=== PATIENT | male | born 1935 | race Caucasian/White ===

== ENCOUNTER → 2019-05-29 14:53 | Outpatient (CLI) | payer MEDICARE, OTHER, SELFPAY ==
[2019-05-29 16:32] LABS: Alanine Aminotransferase 11 IU/L (21-72); Albumin 4.2 g/dL (3.5-5.0); Albumin Globulin Ratio 1.3 (1.0-2.8); Alkaline Phosphatase 73 U/L (38-126); Aspartate Aminotransferase 15 IU/L (17-59); BUN Creatinine Ratio 28.6 (6-22); Bilirubin Total 0.2 mg/dL (0.2-1.3); Blood Urea Nitrogen 20 mg/dL (9-20); Calcium 9.4 mg/dL (8.4-10.2); Carbon Dioxide 29 mmol/L (22-32); Chloride 105 mmol/L (98-107); Estimated Glomerular Filt Rate > 60.0 mL/min (>60); Globulin 3.3 g/dL (1.7-4.1); Glucose 99 mg/dL (80-110); HEMOLYSIS < 15 (0-50); Potassium 4.6 mmol/L (3.4-5.1); Sodium 142 mmol/L (137-145); Total Protein 7.5 g/dL (6.3-8.2)
[2019-05-29 17:00] LABS: TSH w/ Reflex to FT4 1.68 uIU/mL (0.47-4.68)
== END ==
PROVIDERS: PCP Student in an Organized Health Care Education/Training Program; Visit Provider Student in an Organized Health Care Education/Training Program
DX: I10 Essential (primary) hypertension (principal); N40.0 Benign prostatic hyperplasia without lower urinary tract symptoms; R53.82 Chronic fatigue, unspecified
CPT/HCPCS: 36415; 80053; 84443

== ENCOUNTER → 2019-07-13 08:48 | Outpatient (CLI) | payer MEDICARE, OTHER, SELFPAY ==
--- NOTE | 2019-07-13 08:52 | DI.ECHO.S_ITS ---
[facility] +---------+ : : [address] : : : : [id number] : : : : Phone: [phone] Echocardiogram Report + + :Name: NICOLA FOUNTAIN Study Date: 07/13/2019 Height: 67 in : :[facility] Weight: 155 lb : : Gender: Male BSA: 1.8 m2 : :: 1935 Age: 83 yrs BP: 180/86 mmHg: :Reason For Study: Syncope : : Performed By: Floresita Hodges : :Referring: KEREN LI : + + Interpretation Summary Borderline concentric left ventricular hypertrophy with ejection fraction 55- 60%. Grade I diastolic dysfunction. No significant valvular abnormality. Mildly enlarged ascending aorta. Procedure: A two-dimensional transthoracic echocardiogram with color flow and Doppler was performed. The study quality was technically adequate. There is no prior echocardiogram noted for this patient. The patient was in normal sinus rhythm during the exam. The patient had frequent PVCs during the exam. Left Ventricle: The left ventricle is normal in size. There is borderline concentric left ventricular hypertrophy. The ejection fraction is estimated to be 55-60%. There are no focal wall motion abnormalities. Diastolic parameters suggest a relaxation abnormality of the left ventricle, consistent with probable normal filling pressures. Right Ventricle: The right ventricle grossly appears normal in size with probable normal systolic function. Atria: The left atrial size is normal. Right atrial size is normal. The interatrial septum is intact with no evidence for an atrial septal defect. Mitral Valve: The mitral valve is grossly normal. There is trace mitral regurgitation. Aortic Valve: The aortic valve is trileaflet. The aortic valve opens well. No aortic regurgitation is present. Tricuspid Valve: The tricuspid valve is normal in structure and function. No tricuspid regurgitation. Pulmonic Valve: The pulmonic valve is normal in structure and function. There is trace pulmonic regurgitation. Great Vessels: The aortic root is normal size. The ascending aorta is mildly enlarged. The aortic arch is at the upper limits of normal in size. The IVC is of normal diameter and collapses greater than 50% with a sniff. This suggests a low right atrial pressure of 3 mm Hg. Pericardium/ Pleura There is no pericardial effusion. There is no pleural effusion. MMode/2D Measurements & Calculations LVIDd: 4.5 cm Ao root diam: 3.3 cm LVIDs: 3.1 cm Aortic Jxn: 3.1 cm FS: 30.6 % asc Aorta Diam: 3.8 cm EPSS: 1.5 cm Ao Arch Diam (Prox Trans): 3.2 cm IVSd: 1.1 cm LVPWd: 0.87 cm LV robins. diameter/BSA (cm/m^2): 2.5 LV sys. diameter/BSA (cm/m^2): 1.7 LA dimension: 3.0 cm RA long axis: 5.1 cm LA A2 area: 11.1 cm2 RA area: 12.3 cm2 LA A4 area: 11.4 cm2 RA vol: 25.3 ml LA length (vol): 4.9 cm RA : 14.0 ml/m2 LA vol: 21.7 ml IVC diam: 1.6 cm LA vol index: 12.0 ml/m2 RVDd major: 5.2 cm RVD1 (basal): 3.2 cm RVD2 (mid): 2.8 cm Doppler Measurements & Calculations Ao V2 max: 124.7 cm/sec MV E max ferny: 51.0 cm/sec Ao V2 mean: 90.3 cm/sec MV A max ferny: 85.2 cm/sec Ao max P.2 mmHg MV E/A: 0.60 Ao mean P.6 mmHg Med Peak E' Ferny: 6.8 cm/sec Ao V2 VTI: 25.5 cm E/E' med: 7.5 Lat Peak E' Ferny: 6.8 cm/sec E/E' lat: 7.5 E/e' average: 7.5 MV dec time: 0.40 sec MV P1/2t: 115.9 msec PA V2 max: 141.1 cm/sec MV P1/2t max ferny: 50.6 cm/sec PA V2 mean: 70.3 cm/sec MVA(P1/2t): 1.9 cm2 PA mean P.8 mmHg PA Accel Time: 0.10 sec Electronically signed by: Yoni Cuello on Reading Physician:07/13/2019 01:25 PM
== END ==
PROVIDERS: PCP Student in an Organized Health Care Education/Training Program; Visit Provider Student in an Organized Health Care Education/Training Program
DX: R55 Syncope and collapse (principal); I77.89 Other specified disorders of arteries and arterioles
CPT/HCPCS: 93306

== ENCOUNTER → 2021-06-07 10:30 | Outpatient (CLI) | payer MEDICARE, OTHER, SELFPAY ==
[2021-06-07 11:43] LABS: Add Manual Diff / Slide Review NO; Basophils Absolute Auto 0 /uL (0-100); Basophils Percent Auto 0.4 % (0-2); Eosinophils Absolute Auto 300 /uL (0-450); Eosinophils Percent Auto 3.4 % (2-4); Hematocrit 46.5 % (41-53); Hemoglobin 15.9 g/dL (13.5-17.5); Lymphocytes Absolute Auto 1900 /uL (1100-4500); Lymphocytes Percent Auto 23.9 % (25-40); Mean Corpuscular HGB Conc 34.3 % (30-36); Mean Corpuscular Volume 90.6 fL (80-100); Monocytes Absolute Auto 800 /uL (0-900); Monocytes Percent Auto 9.9 % (3-14); Neutrophils Absolute Auto 5000 /uL (1500-7000); Neutrophils Percent Auto 62.4 % (50-75); Platelet Count 263 X10^3/uL (150-400); Red Blood Cell Count 5.13 X10^6/uL (4.5-5.9); Red Cell Distribution Width 13.6 % (11.6-14.8)
[2021-06-07 12:22] LABS: Alanine Aminotransferase 12 IU/L (<50); Albumin 4.2 g/dL (3.5-5.0); Albumin Globulin Ratio 1.2 (1.0-2.8); Alkaline Phosphatase 70 U/L (38-126); Aspartate Aminotransferase 19 IU/L (17-59); BUN Creatinine Ratio 20.6 (6-22); Bilirubin Total 0.6 mg/dL (0.2-1.3); Blood Urea Nitrogen 14 mg/dL (9-20); Calcium 9.3 mg/dL (8.4-10.2); Carbon Dioxide 27 mmol/L (22-32); Chloride 107 mmol/L (98-107); Cholesterol 197 mg/dL (140-199); Estimated Glomerular Filt Rate > 60.0 mL/min (>60); Globulin 3.6 g/dL (1.7-4.1); Glucose 122 mg/dL (80-110); HDL Cholesterol 42 mg/dL (40-60); HEMOLYSIS < 15 (0-50); LDL Cholesterol Calculated 130 mg/dL (<100); Potassium 4.2 mmol/L (3.4-5.1); Sodium 142 mmol/L (137-145); Total Protein 7.8 g/dL (6.3-8.2); Triglycerides 125 mg/dL (35-150)
[2021-06-07 13:45] LABS: Thyroid Stimulating Hormone 1.75 uIU/mL (0.47-4.68)
== END ==
PROVIDERS: PCP Family Medicine; Referring Provider Family Medicine; Visit Provider Family Medicine
DX: R53.83 Other fatigue (principal); Z13.220 Encounter for screening for lipoid disorders; E78.00 Pure hypercholesterolemia, unspecified
CPT/HCPCS: 36415; 80053; 80061; 84443; 85025

== ENCOUNTER → 2021-07-05 10:52 | Outpatient (CLI) | payer MEDICARE, OTHER, SELFPAY ==
[2021-07-05 12:38] LABS: Add Manual Diff / Slide Review NO; Basophils Absolute Auto 0 /uL (0-100); Basophils Percent Auto 0.5 % (0-2); Eosinophils Absolute Auto 200 /uL (0-450); Hematocrit 46.3 % (41-53); Hemoglobin 15.6 g/dL (13.5-17.5); Lymphocytes Absolute Auto 1800 /uL (1100-4500); Lymphocytes Percent Auto 20.7 % (25-40); Mean Corpuscular HGB Conc 33.7 % (30-36); Mean Corpuscular Hemoglobin 30.5 PG (26-34); Mean Corpuscular Volume 90.5 fL (80-100); Monocytes Absolute Auto 700 /uL (0-900); Monocytes Percent Auto 8.2 % (3-14); Neutrophils Absolute Auto 6000 /uL (1500-7000); Neutrophils Percent Auto 68.6 % (50-75); Platelet Count 257 X10^3/uL (150-400); Red Blood Cell Count 5.12 X10^6/uL (4.5-5.9); Red Cell Distribution Width 13.4 % (11.6-14.8); White Blood Cell Count 8.8 X10^3/uL (4.5-11.0)
[2021-07-05 13:03] LABS: Alanine Aminotransferase 12 IU/L (<50); Albumin 3.9 g/dL (3.5-5.0); Albumin Globulin Ratio 1.1 (1.0-2.8); Alkaline Phosphatase 77 U/L (38-126); Aspartate Aminotransferase 16 IU/L (17-59); BUN Creatinine Ratio 21.3 (6-22); Bilirubin Total 0.6 mg/dL (0.2-1.3); Blood Urea Nitrogen 16 mg/dL (9-20); Calcium 9.7 mg/dL (8.4-10.2); Carbon Dioxide 28 mmol/L (22-32); Chloride 106 mmol/L (98-107); Cholesterol 208 mg/dL (140-199); Estimated Glomerular Filt Rate > 60.0 mL/min (>60); Globulin 3.4 g/dL (1.7-4.1); Glucose 121 mg/dL (80-110); HDL Cholesterol 47 mg/dL (40-60); HEMOLYSIS < 15 (0-50); LDL Cholesterol Calculated 132 mg/dL (<100); Potassium 4.6 mmol/L (3.4-5.1); Sodium 140 mmol/L (137-145); Total Protein 7.3 g/dL (6.3-8.2); Triglycerides 145 mg/dL (35-150)
[2021-07-05 13:27] LABS: Thyroid Stimulating Hormone 1.53 uIU/mL (0.47-4.68)
== END ==
PROVIDERS: PCP Family Medicine; Referring Provider Family Medicine; Visit Provider Family Medicine
DX: R53.83 Other fatigue (principal); Z13.220 Encounter for screening for lipoid disorders
CPT/HCPCS: 36415; 80053; 80061; 84443; 85025

== ENCOUNTER → 2022-05-23 10:30 | Outpatient (CLI) | payer MEDICARE, OTHER, SELFPAY ==
--- NOTE | 2022-05-23 10:32 | DI.RAD.S_ITS ---
PROCEDURE: XR LUMBAR SPINE 2-3V INDICATIONS: low back pain TECHNIQUE: 3 views of the lumbar spine were acquired. COMPARISON: None. FINDINGS: Bones: 5 [id number]-vyk-[id number] vertebrae are present. Mild levoscoliosis. Multilevel DDD and all vertebral body osteophytes. Lower lumbar spine facet joint hypertrophy. No vertebral body compression fractures. No suspicious bony lesions. Soft tissues: Overlying bowel gas pattern is normal. No suspicious soft tissue calcifications. IMPRESSION: Moderate DDD and degenerative change. No compression fracture identified. Dictated by: Dale Bustillo M.D. on 05/23/2022 at 13:12 Approved by: Dale Bustillo M.D. on 05/23/2022 at 13:20
[2022-05-23 12:20] LABS: Hematocrit 46.8 % (41-53); Hemoglobin 15.8 g/dL (13.5-17.5); Mean Corpuscular HGB Conc 33.8 % (30-36); Mean Corpuscular Hemoglobin 30.5 PG (26-34); Mean Corpuscular Volume 90.4 fL (80-100); Platelet Count 321 X10^3/uL (150-400); Red Blood Cell Count 5.18 X10^6/uL (4.5-5.9); Red Cell Distribution Width 13.5 % (11.6-14.8); White Blood Cell Count 8.1 X10^3/uL (4.5-11.0)
[2022-05-23 12:38] LABS: Erythrocyte Sedimentation Rate 4 MM/HR (0-15)
[2022-05-23 13:10] LABS: HEMOLYSIS < 15 (0-50)
[2022-05-23 13:18] LABS: Alanine Aminotransferase 11 IU/L (<50); Albumin 4.3 g/dL (3.5-5.0); Albumin Globulin Ratio 1.2 (1.0-2.8); Alkaline Phosphatase 76 U/L (38-126); Aspartate Aminotransferase 16 IU/L (17-59); BUN Creatinine Ratio 17.8 (6-22); Bilirubin Total 0.6 mg/dL (0.2-1.3); Blood Urea Nitrogen 13 mg/dL (9-20); Calcium 9.3 mg/dL (8.4-10.2); Carbon Dioxide 28 mmol/L (22-32); Chloride 105 mmol/L (98-107); Cholesterol 200 mg/dL (140-199); Estimated Glomerular Filt Rate > 60 mL/min (>60); Globulin 3.5 g/dL (1.7-4.1); Glucose 126 mg/dL (80-110); HDL Cholesterol 45 mg/dL (40-60); LDL Cholesterol Calculated 124 mg/dL (<100); Potassium 4.3 mmol/L (3.4-5.1); Sodium 141 mmol/L (137-145); Total Protein 7.8 g/dL (6.3-8.2); Triglycerides 155 mg/dL (35-150)
[2022-05-25 06:47] LABS: C-Reactive Protein Quant < 0.5 mg/dL (<1.0)
[2022-05-25 07:35] LABS: Prostate Specific Antigen 3.31 ng/mL (0.10-4.00)
[2022-05-25 07:54] LABS: Vitamin B12 246 pg/mL (239-931)
== END ==
PROVIDERS: PCP Internal Medicine; Referring Provider Internal Medicine; Visit Provider Internal Medicine
DX: M54.50 Low back pain, unspecified (principal); E78.2 Mixed hyperlipidemia; N40.1 Benign prostatic hyperplasia with lower urinary tract symptoms; G89.29 Other chronic pain; I10 Essential (primary) hypertension; R35.0 Frequency of micturition; R53.82 Chronic fatigue, unspecified; E53.8 Deficiency of other specified B group vitamins; M51.36 Other intervertebral disc degeneration, lumbar region
CPT/HCPCS: 36415; 72100; 80053; 80061; 82607; 84153; 84443; 85027; 85651; 86140

== ENCOUNTER → 2022-12-10 12:02 | Outpatient (CLI) | payer MEDICARE, OTHER, SELFPAY ==
[2022-12-10 16:09] LABS: Vitamin B12 787 pg/mL (239-931)
== END ==
PROVIDERS: PCP Internal Medicine; Referring Provider Internal Medicine; Visit Provider Internal Medicine
DX: E53.8 Deficiency of other specified B group vitamins (principal)
CPT/HCPCS: 36415; 82607

== ENCOUNTER → 2022-12-17 12:27 | Outpatient (CLI) | payer MEDICARE, OTHER, SELFPAY ==
[2022-12-17 13:56] LABS: Thyroid Stimulating Hormone 1.72 uIU/mL (0.47-4.68)
== END ==
PROVIDERS: PCP Internal Medicine; Referring Provider Physician Assistant Medical; Visit Provider Physician Assistant Medical
DX: R53.82 Chronic fatigue, unspecified (principal); E53.8 Deficiency of other specified B group vitamins
CPT/HCPCS: 36415; 84443

== ENCOUNTER → 2023-03-11 12:21 | Outpatient (CLI) | payer MEDICARE, OTHER, SELFPAY ==
[2023-03-11 13:03] LABS: Aspartate Aminotransferase 19 IU/L (17-59); BUN Creatinine Ratio 21.1 (6-22); Blood Urea Nitrogen 15 mg/dL (9-20); Calcium 9.4 mg/dL (8.4-10.2); Carbon Dioxide 30 mmol/L (22-32); Chloride 102 mmol/L (98-107); Cholesterol 139 mg/dL (140-199); Estimated Glomerular Filt Rate > 60 mL/min (>60); Glucose 110 mg/dL (80-110); HDL Cholesterol 46 mg/dL (40-60); HEMOLYSIS < 15 (0-50); LDL Cholesterol Calculated 66 mg/dL (<100); Potassium 4.2 mmol/L (3.4-5.1); Sodium 139 mmol/L (137-145); Triglycerides 137 mg/dL (35-150)
[2023-03-11 13:51] LABS: Vitamin B12 787 pg/mL (239-931)
== END ==
PROVIDERS: PCP Internal Medicine; Referring Provider Internal Medicine; Visit Provider Internal Medicine
DX: I10 Essential (primary) hypertension (principal); E53.8 Deficiency of other specified B group vitamins; E78.2 Mixed hyperlipidemia
CPT/HCPCS: 36415; 80048; 80061; 82607; 84450

== ENCOUNTER 2023-11-14 11:59 | Emergency (ER) | payer MEDICARE, OTHER, SELFPAY ==
[2023-11-14 12:06] VITALS: BP 165/96; PULSE 83; RESP 18; TEMP 36.9; O2SAT 96; BMI 21.9
--- NOTE | 2023-11-14 12:35 | ED.FALL ---
HPI - Fall <Belle Jauregui PA-C - Last Filed: 11/14/23 12:40> General Chief Complaint: Fall Stated Complaint: sent by [facility] fell on face swollen Time Seen by Provider: 11/14/23 12:21 Source: patient Mode of arrival: Ambulatory History of Present Illness HPI Narrative: Patient is an 88-year-old male who presents with redness and swelling of the right side of his face. reports he fell forward out of a low chair onto carpet about 3 days ago and did bump his cheek. It was slightly red yesterday but when he awoke this morning, he was having more discomfort, edema and redness. He denies fever or chills. He does not take any blood thinner medicines. No vision changes or pain with eye movement.. Related Data Home Medications Medication Instructions Recorded Confirmed cholecalciferol (vitamin D3) 50 50 mcg PO DAILY 05/23/22 09/10/23 mcg (2,000 unit) capsule cyanocobalamin (vitamin B-12) 1,000 mcg PO DAILY 12/10/22 09/10/23 1,000 mcg capsule aspirin 81 mg capsule 81 mg PO DAILY 03/11/23 09/10/23 Previous Rx's Medication Instructions Recorded rosuvastatin 10 mg tablet 10 mg PO DAILY #90 tabs 11/13/23 amoxicillin 875 mg-potassium 1 tab PO BID #20 tabs 11/14/23 clavulanate 125 mg tablet Allergies Allergy/AdvReac Type Severity Reaction Status Date / Time terazosin AdvReac Intermediate disorientat Verified 09/10/23 09:35 ion Review of Systems <Belle Jauregui PA-C - Last Filed: 11/14/23 12:40> Review of Systems ROS Unobtainable: All systems reviewed & are unremarkable except as noted in HPI and below Patient History <Belle Jauregui PA-C - Last Filed: 11/14/23 12:40> Medical History Allergic rhinitis B12 deficiency Do not resuscitate Chronic low back pain Mild cognitive impairment Mixed hyperlipidemia Gout Chronic back pain (1999) Depression Anxiety GERD (gastroesophageal reflux disease) Prostatitis Pneumonia Surgical History History of hand surgery History of cystoscopy (2002) History of thumb surgery (08/04/09) 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 Well-developed patient, in no distress. NEURO: AOx3. HEAD: Atraumatic. Normocephalic. EYES: Pupils equal round and reactive. Extraocular motions intact. No scleral icterus. No injection or drainage. ENT: Bilateral TMs pearly simeon. Patient is hard of hearing and forgot his hearing aids. Nose without bleeding or purulent drainage. Moderate edema and erythema of the right cheek, centered lateral to the nose. Tender to palpation lateral to the nose but not tender to the eye or the chin. Examination of the oropharynx shows significant erythema and induration of the upper gingiva around tooth #5 and #6- this area is tender to touch. Patient has multiple visible caries and halitosis. NECK: Trachea midline. Non tender RESPIRATORY: No increased work of breathing or distress SKIN: No rash or erythema of visible areas Initial Vital Signs Initial Vital Signs: Vital Signs Temperature 98.5 F 11/14/23 12:06 Pulse Rate 83 11/14/23 12:06 Respiratory Rate 18 11/14/23 12:06 Blood Pressure 165/96 H 11/14/23 12:06 Pulse Oximetry 96 11/14/23 12:06 Oxygen Delivery Method Room Air 11/14/23 12:06 <Carmela Suero DO - Last Filed: 11/15/23 07:46> Initial Vital Signs Initial Vital Signs: Vital Signs Temperature 98.5 F 11/14/23 12:06 Pulse Rate 83 11/14/23 12:06 Respiratory Rate 18 11/14/23 12:06 Blood Pressure 165/96 H 11/14/23 12:06 Pulse Oximetry 96 12/14/23 12:06 Oxygen Delivery Method Room Air 11/14/23 12:06 Course <Belle Jauregui PA-C - Last Filed: 11/14/23 12:40> Vital Signs Vital signs: Vital Signs - 8 hr 11/14/23 12:06 Temperature 98.5 F Pulse Rate 83 Respiratory Rate 18 Blood Pressure 165/96 H Pulse Oximetry 96 Oxygen Delivery Method Room Air <Carmela Suero DO - Last Filed: 11/15/23 07:46> Vital Signs Vital signs: Vital Signs - 8 hr 11/14/23 12:06 Temperature 98.5 F Pulse Rate 83 Respiratory Rate 18 Blood Pressure 165/96 H Pulse Oximetry 96 Oxygen Delivery Method Room Air MDM - Fall <Belle Jauregui PA-C - Last Filed: 11/14/23 12:40> MDM Narrative Medical decision making narrative: Multiple etiologies for patient's symptoms considered including, but not limited to: Dental abscess, facial fracture, cellulitis, periorbital or preseptal cellulitis Physical exam most consistent with dental abscess with evidence of multiples caries and halitosis, as well as erythema and tenderness of the right upper gum. Discussed findings with the patient and his . We will treat with 10 days of Augmentin. Strongly encouraged to call around and make an appointment for him to follow up with a dentist in approximately 2 weeks after the infection has been treated. He will likely need removal of the tooth and is in need of other dental care as well. Strict return precautions given if patient worsens or is not improving. Patient's symptoms improved over duration of stay with above-stated therapies. Findings and discharge diagnosis discussed with patient/family followed by verbalization of understanding Return precautions discussed with patient/family whom verbalize understanding of diagnosis and plan Discharge Plan Departure Patient Disposition: Home Clinical Impression: Dental infection Instructions: Tooth Abscess Activity Restrictions/Additional Instructions: *You have been diagnosed with dental abscess. I have prescribed an antibiotic called Augmentin. You will take this pill twice a day for 10 days. Take all the pills even if you are feeling better. If you develop fever, worsening pain or worsening swelling after taking the antibiotic for 48 hours, please come back to the emergency department for re-evaluation. Your symptoms should start to improve after 2 days of antibiotics. For pain, you can take Tylenol or ibuprofen. You can apply an ice pack or warm compress to the area. I would also encourage you to gargle and swish with warm salt water at least twice a day to help clear the infection in your mouth. Please call a dentist and asked to schedule an appointment in approximately 2 weeks for assessment. He will likely need the infected tooth removed. *What to do: *Please continue to take your regular medications as directed. [x] New medication prescriptions sent to your pharmacy: [facility] [ ] New medication written as a paper prescription [ ] No new medications given *Please follow up with your primary care provider in 2-3 days, call for an appointment. Let them know you were seen in the Emergency Department and that we ask that you be seen in follow up. We will electronically transmit a record of today's note if your PCP is in our system *If you do not have a primary care provider please contact the [facility] Resource line at [phone]. They will ask some questions about your medical history and help get you set up with a doctor in the community. *Return to Emergency Department if you should have any new, worsening or concerning symptoms, such as [fever greater than 101 F, shaking chills, worsening pain, persistent vomiting or other concerning symptoms]. Prescriptions: New amoxicillin-pot clavulanate 875-125 mg tablet 1 tab PO BID Qty: 20 0RF No Action rosuvastatin 10 mg tablet 10 mg PO DAILY Qty: 90 3RF cholecalciferol (vitamin D3) 50 mcg (2,000 unit) capsule 50 mcg PO DAILY cyanocobalamin (vitamin B-12) 1,000 mcg capsule 1,000 mcg PO DAILY aspirin 81 mg capsule 81 mg PO DAILY Referrals: Topher Miller MD [Primary Care Provider] - Stand Alone Forms: Patient Portal/API ED Sign-out <Carmela Suero DO - Last Filed: 11/15/23 07:46> Cosign ED Attending Jamilahature Attestation: I was available for consultation.
== END 2023-11-14 12:44 | disposition home or self-care (01) ==
PROVIDERS: Emergency Provider Physician Assistant; PCP Internal Medicine
DX: K04.7 Periapical abscess without sinus (principal); K02.9 Dental caries, unspecified; R19.6 Halitosis
CPT/HCPCS: 99282

== ENCOUNTER 2024-05-27 10:53 | Emergency (ER) | payer MEDICARE, OTHER, SELFPAY ==
[2024-05-27 10:56] VITALS: BP 164/87; PULSE 87; RESP 14; TEMP 36.3; O2SAT 95
--- NOTE | 2024-05-27 11:00 | DI.RAD.S_ITS ---
PROCEDURE: XR HUMERUS LT 2V INDICATIONS: fall 2 weeks ago shoulder pain TECHNIQUE: 2 views of the humerus were acquired. COMPARISON: None. FINDINGS: Bones: No fractures or dislocations. No suspicious bony lesions. Soft tissues: No suspicious soft tissue calcifications. IMPRESSION: No acute bony abnormality. Dictated by: Randall Denise M.D. on 05/27/2024 at 13:06 Approved by: Randall Denise M.D. on 05/27/2024 at 13:06
--- NOTE | 2024-05-27 11:00 | DI.RAD.S_ITS ---
PROCEDURE: XR SHOULDER LT MIN 2V INDICATIONS: fall 2 weeks ago shoulder pain TECHNIQUE: 3 views of the shoulder were acquired. COMPARISON: None. FINDINGS: Bones: No fractures or dislocations. No suspicious bony lesions. Visualized ribs appear intact. Glenohumeral and acromioclavicular joint space narrowing with associated osteophytosis. Soft tissues: No suspicious soft tissue calcifications. IMPRESSION: Moderate shoulder osteoarthritis. No acute bony abnormality. Dictated by: Randall Denise M.D. on 05/27/2024 at 13:05 Approved by: Randall Denise M.D. on 05/27/2024 at 13:06
--- NOTE | 2024-05-27 11:51 | ED.UPPEXIN ---
HPI - Extremity Injury (Upper) <SEBASTIAN May - Last Filed: 05/27/24 13:18> General Chief Complaint: Extremity Injury, Upper Stated Complaint: L arm pain/injury Time Seen by Provider: 05/27/24 11:32 Source: patient Mode of arrival: Ambulatory History of Present Illness HPI narrative: 88-year-old male, former smoker, presents to the emergency department with left shoulder and arm pain after falling 2.5 weeks ago. Patient was walking out his back porch, without his walking stick, lost his balance and fell over onto his left side hitting his arm against the steps. Patient denies hitting his head or any loss of consciousness. No bruising occurred. Mild pain with abduction. Neurovascularly intact. Related Data Home Medications Medication Instructions Recorded Confirmed cholecalciferol (vitamin D3) 50 50 mcg PO DAILY 05/23/22 09/10/23 mcg (2,000 unit) capsule cyanocobalamin (vitamin B-12) 1,000 mcg PO DAILY 12/10/22 09/10/23 1,000 mcg capsule aspirin 81 mg capsule 81 mg PO DAILY 03/11/23 09/10/23 Previous Rx's Medication Instructions Recorded rosuvastatin 10 mg tablet 10 mg PO DAILY #90 tabs 11/13/23 amoxicillin 875 mg-potassium 1 tab PO BID #20 tabs 11/14/23 clavulanate 125 mg tablet Allergies Allergy/AdvReac Type Severity Reaction Status Date / Time terazosin AdvReac Intermediate disorientat Verified 05/27/24 10:56 ion Review of Systems <SEBASTIAN May - Last Filed: 05/27/24 13:18> Review of Systems Narrative: Narrative: See HPI. GENERAL: Denies chills, fatigue, fever, sweats. HEENT: Denies sinus pain, ear pain, sore throat, difficulty swallowing, dizziness. RESPIRATORY: Denies dyspnea, cough, wheezing, sputum. CARDIOVASCULAR: Denies chest pain, palpitations, edema. GASTROINTESTINAL: Denies nausea, vomiting, abdominal pain, diarrhea, constipation. : Denies dysuria, frequency, incontinence, hematuria, urinary retention, flank pain. MSK: Endorses left shoulder and arm pain. SKIN: Denies rash, skin lesions, or pruritis. NEUROLOGIC: Denies weakness, dizziness, headache, numbness, confusion. PSYCHIATRIC: No concerning psychosocial issues. Patient History <SEBASTIAN May - Last Filed: 05/27/24 13:18> Medical History Allergic rhinitis B12 deficiency Do not resuscitate Chronic low back pain Mild cognitive impairment Mixed hyperlipidemia Gout Chronic back pain (1999) Depression Anxiety GERD (gastroesophageal reflux disease) Prostatitis Pneumonia Surgical History History of hand surgery History of cystoscopy (2002) History of thumb surgery (08/04/09) History of knee replacement (05/23/01) Family History Father Heart disease Asthma Mother Cancer Social History details: (Pat) Smoking Status: Former smoker Smoking Status: Former smoker alcohol intake frequency: holidays/special occasions only Substance Use Type: does not use Exam <SEBASTIAN May - Last Filed: 05/27/24 13:18> Narrative Exam Narrative: Exam Narrative: GENERAL: This is a well-nourished, well-developed patient, in no acute distress. HEAD: Atraumatic. Normocephalic. EYES: Pupils equal round and reactive. Extraocular motions intact. No scleral icterus, injection or drainage. ENT: Nose without bleeding, purulent drainage. Airway patent. NECK: Trachea midline. No JVD or lymphadenopathy. Nontender. CARDIOVASCULAR: Regular rate and rhythm without murmurs, peripheral pulses intact, cap refill <2 sec. RESPIRATORY: Breath sounds equal and clear bilaterally. No wheezes, rales, or rhonchi. No cough. No increased respiratory effort. No accessory muscle use. MSK: Moves all extremities. Normal range of motion, no clubbing or edema. Neurovascularly intact. NEURO: A&O x 3. SKIN: Warm, dry, no rashes or lesions noted. SHOULDER: There is swelling and asymmetry at AC joint, but no bruising. There is no tenderness to palpation over the AC joint, coracoid or glenoid processes. There is no soft tissue tenderness to palpation. Sensation grossly intact. Active and passive range of motion is limited due to pain. Resistive strength intact. Range of motion of the elbow is normal. The contralateral shoulder exam is unremarkable. Initial Vital Signs Initial Vital Signs: Vital Signs Temperature 97.4 F L 05/27/24 10:56 Pulse Rate 87 05/27/24 10:56 Respiratory Rate 14 05/27/24 10:56 Blood Pressure 164/87 H 05/27/24 10:56 Pulse Oximetry 95 05/27/24 10:56 Oxygen Delivery Method Room Air 05/27/24 10:56 Reviewed <DO Whitney Quene Last Filed: 05/27/24 13:44> Initial Vital Signs Initial Vital Signs: Vital Signs Temperature 97.4 F L 05/27/24 10:56 Pulse Rate 87 05/27/24 10:56 Respiratory Rate 14 05/27/24 10:56 Blood Pressure 164/87 H 05/27/24 10:56 Pulse Oximetry 95 05/27/24 10:56 Oxygen Delivery Method Room Air 05/27/24 10:56 Course <SEBASTIAN May - Last Filed: 05/27/24 13:18> Orders Ordered: ED Orders 05/27/24 11:00 XR humerus LT 2V Stat XR shoulder LT min 2V Stat Vital Signs Vital signs: Vital Signs - 8 hr 05/27/24 10:56 05/27/24 13:27 Temperature 97.4 F L Pulse Rate 87 80 Respiratory Rate 14 17 Blood Pressure 164/87 H 148/87 H Pulse Oximetry 95 95 Oxygen Delivery Method Room Air Room Air <DO Whitney Queen Last Filed: 05/27/24 13:44> Orders Ordered: ED Orders 05/27/24 11:00 XR humerus LT 2V Stat XR shoulder LT min 2V Stat Vital Signs Vital signs: Vital Signs - 8 hr 05/27/24 10:56 05/27/24 13:27 Temperature 97.4 F L Pulse Rate 87 80 Respiratory Rate 14 17 Blood Pressure 164/87 H 148/87 H Pulse Oximetry 95 95 Oxygen Delivery Method Room Air Room Air MDM - Extremity Injury (Upper) <SEBASTIAN May Last Filed: 05/27/24 13:18> Differential Diagnosis Differential diagnosis: Likely dislocation of shoulder, fracture of humerus, fracture of clavicle and other (AC separation) Imaging Data Extremity x-ray #1: Radiologist's Impression: [address] [address] XRay Report Signed Patient: Pasquale Tay MR#: [id number] : 1935 Acct:[id number] Age/Sex: 88 / M Date of Service: 05/27/24 Loc: ED Accession Number: [id number] Procedure: XR shoulder LT min 2V Ordering Provider: Alejandro Farah D.O. PROCEDURE: XR SHOULDER LT MIN 2V INDICATIONS: fall 2 weeks ago shoulder pain TECHNIQUE: 3 views of the shoulder were acquired. COMPARISON: None. FINDINGS: Bones: No fractures or dislocations. No suspicious bony lesions. Visualized ribs appear intact. Glenohumeral and acromioclavicular joint space narrowing with associated osteophytosis. Soft tissues: No suspicious soft tissue calcifications. IMPRESSION: Moderate shoulder osteoarthritis. No acute bony abnormality. Dictated by: Randall Denise M.D. on 05/27/2024 at 13:05 Approved by: Randall Denise M.D. on 05/27/2024 at 13:06 Extremity x-ray #2: Radiologist's Impression: [place] [address] XRay Report Signed Patient: Pasquale Tay MR#: [id number] : 1935 Acct:[id number] Age/Sex: 88 / M Date of Service: 05/27/24 Loc: ED Accession Number: [id number] Procedure: XR humerus LT 2V Ordering Provider: Alejandro Farah D.O. PROCEDURE: XR HUMERUS LT 2V INDICATIONS: fall 2 weeks ago shoulder pain TECHNIQUE: 2 views of the humerus were acquired. COMPARISON: None. FINDINGS: Bones: No fractures or dislocations. No suspicious bony lesions. Soft tissues: No suspicious soft tissue calcifications. IMPRESSION: No acute bony abnormality. Dictated by: Randall Denise M.D. on 05/27/2024 at 13:06 Approved by: Randall Denise M.D. on 05/27/2024 at 13:06 [facility] Narrative Medical decision making narrative: 88-year-old male with left shoulder injury. Assessment was encouraging and arm is neurovascularly intact. With the bump at the left AC joint region, suspect a AC joint separation. Radiologist reports moderate shoulder osteoarthritis and no bony abnormalities. Discussed supportive care to include gentle range of motion stretching exercises, Rest (modified activity), along with ice, compression wrap/splint-immobilize as directed and elevation above heart. Tylenol for discomfort. Discussed plan of care and return precautions with patient and spouse, who verbalized understanding and was agreeable with course of action. Discharge Plan Departure Patient Disposition: Home Clinical Impression: Injury of Upper Extremity Qualifiers: Encounter type: initial encounter Laterality: left Qualified Code(s): S49.92XA - Unspecified injury of left shoulder and upper arm, initial encounter Instructions: DI for Shoulder Sprain, DI for AC Joint Separation Activity Restrictions/Additional Instructions: *You have been diagnosed with left shoulder pain. The radiologist's reports moderate osteoarthritis, but review by this provider and the ED provider suspect a left shoulder AC separation. This is good news that there are no fractures, but may take some time to fully heal. As we discussed, use gentle range of motion stretching exercises, hot or cold compresses to the affected site and Tylenol as needed for discomfort. If at any point symptoms worsen, please follow-up with your family doctor or feel free to return to the emergency department. *What to do: *Please continue to take your regular medications as directed. [ ] New medication prescriptions sent to your pharmacy: [ ] [ ] New medication written as a paper prescription [ x] No new medications given *Please follow up with your primary care provider in 2-3 days, call for an appointment. Let them know you were seen in the Emergency Department and that we ask that you be seen in follow up. We will electronically transmit a record of today's note if your PCP is in our system *If you do not have a primary care provider please contact the [facility] Resource line at [phone]. They will ask some questions about your medical history and help get you set up with a doctor in the community. ? Return to ER if you should have any new, worsening or concerning symptoms, such as worsening pain, severe headache, confusion, chest pain, difficulty breathing, fever greater than 101 F, shaking chills, persistent vomiting to the point that you cannot drink fluids, or other new or worsening symptoms. Prescriptions: No Action rosuvastatin 10 mg tablet 10 mg PO DAILY Qty: 90 3RF cholecalciferol (vitamin D3) 50 mcg (2,000 unit) capsule 50 mcg PO DAILY cyanocobalamin (vitamin B-12) 1,000 mcg capsule 1,000 mcg PO DAILY aspirin 81 mg capsule 81 mg PO DAILY amoxicillin-pot clavulanate 875-125 mg tablet 1 tab PO BID Qty: 20 0RF Referrals: Topher Miller MD [Primary Care Provider] - Stand Alone Forms: Patient Portal/API ED Sign-out <Alejandro Farah, - Last Filed: 05/27/24 13:44> Cosign ED Attending Cosignature Attestation: Dr Farah Co-Sign Statement: I was available for consultation during this patient's emergency department visit. This chart is signed by myself for administrative purposes only. I did not have direct contact with this patient during this visit. They were seen independently by the APC.
[2024-05-27 13:27] VITALS: BP 148/87; PULSE 80; RESP 17; O2SAT 95
== END 2024-05-27 13:27 | disposition home or self-care (01) ==
PROVIDERS: Emergency Provider Registered Nurse; PCP Internal Medicine
DX: S49.92XA Unspecified injury of left shoulder and upper arm, initial encounter (principal); W18.30XA Fall on same level, unspecified, initial encounter
CPT/HCPCS: 73030; 73060; 99283

== ENCOUNTER → 2025-01-03 10:42 | Outpatient (CLI) | payer MEDICARE, OTHER, SELFPAY ==
--- NOTE | 2025-01-03 10:46 | DI.CT.S_ITS ---
PROCEDURE: CT HEAD/BRAIN WO CON INDICATIONS: dementia TECHNIQUE: Noncontrast 4.5 mm thick angled axial sections acquired from the foramen magnum to the vertex, with coronal and sagittal reformats. For radiation dose reduction, the following was used: automated exposure control, adjustment of mA and/or kV according to patient size. COMPARISON: None. FINDINGS: Image quality: Diagnostic. CSF spaces: Basal cisterns are patent. No extra-axial fluid collections. Ventricles are normal in size and shape. Brain: No midline shift. No intracranial masses or hemorrhage. Osorio-white matter interface is normal. Generalized atrophy and mild white ischemic change Skull and face: Calvarium and visualized facial bones are intact, without suspicious lesions. Sinuses: Visualized sinuses and mastoids are clear. IMPRESSION: Generalized cerebral and cerebellar atrophy without asymmetric cerebral lobar, brain stem, or hippocampal predominance to suggest specific neurodegenerative disease. Approved by: Gerard Hernandez M.D. on 01/04/2025 at 14:20
== END ==
LOC: CT 10:43
PROVIDERS: PCP Internal Medicine; Referring Provider Internal Medicine; Visit Provider Internal Medicine
DX: F02.80 Dementia in other diseases classified elsewhere, unspecified severity, without behavioral disturbance, psychotic disturbance, mood disturbance, and anxiety (principal); G30.9 Alzheimer's disease, unspecified
CPT/HCPCS: 70450

== ENCOUNTER → 2025-04-01 11:40 | Outpatient (CLI) | payer MEDICARE, OTHER, SELFPAY ==
[2025-04-01 12:27] LABS: Hematocrit 42.2 % (41-53); Hemoglobin 14.7 g/dL (13.5-17.5); Mean Corpuscular HGB Conc 34.7 % (30-36); Mean Corpuscular Hemoglobin 30.9 PG (26-34); Mean Corpuscular Volume 88.9 fL (80-100); Platelet Count 314 X10^3/uL (150-400); Red Blood Cell Count 4.75 X10^6/uL (4.5-5.9); Red Cell Distribution Width 13.1 % (11.6-14.8); White Blood Cell Count 8.2 X10^3/uL (4.5-11.0)
[2025-04-01 12:59] LABS: Alanine Aminotransferase 16 IU/L (<50); Albumin 4.1 g/dL (3.5-5.0); Albumin Globulin Ratio 1.3 (1.0-2.8); Alkaline Phosphatase 78 U/L (38-126); Aspartate Aminotransferase 15 IU/L (17-59); BUN Creatinine Ratio 24.6 (6-22); Bilirubin Total 0.5 mg/dL (0.2-1.3); Blood Urea Nitrogen 17 mg/dL (9-20); Calcium 9.3 mg/dL (8.4-10.2); Carbon Dioxide 27 mmol/L (22-32); Chloride 102 mmol/L (98-107); Cholesterol 128 mg/dL (140-199); Estimated Glomerular Filt Rate > 60 mL/min (>60); Globulin 3.2 g/dL (1.7-4.1); Glucose 232 mg/dL (70-99); HDL Cholesterol 44 mg/dL (40-60); HEMOLYSIS < 15 (0-50); LDL Cholesterol Calculated 52 mg/dL (<100); Potassium 4.3 mmol/L (3.4-5.1); Sodium 138 mmol/L (137-145); Total Protein 7.3 g/dL (6.3-8.2); Triglycerides 160 mg/dL (35-150)
[2025-04-01 13:30] LABS: TSH w/ Reflex to FT4 1.54 uIU/mL (0.47-4.68)
[2025-04-01 13:49] LABS: Vitamin B12 429 pg/mL (239-931)
[2025-04-01 17:30] LABS: Hemoglobin A1C% w Est Avg Glu 9.3 % (4.0-6.0)
== END ==
PROVIDERS: PCP Internal Medicine; Referring Provider Internal Medicine; Visit Provider Internal Medicine
DX: E53.8 Deficiency of other specified B group vitamins (principal); E78.2 Mixed hyperlipidemia; I10 Essential (primary) hypertension; R73.9 Hyperglycemia, unspecified
CPT/HCPCS: 36415; 80053; 80061; 82607; 83036; 84443; 85027